=== PATIENT | female | born 1960 | race Caucasian/White ===

== ENCOUNTER 2016-11-15 21:00 | Emergency (ER) | payer OTHER ==
[~2016-11-15] VITALS: Ht 147.3 cm; Wt 42.2 kg
--- NOTE | ~2016-11-15 | EKG ---
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
[~2016-11-15 21:00] MED LIST: ABILIFY 2 MG2 MG PO; ACTIGALL300 MG PO; ALBUTEROL INHAL17 GM IH; ANTIVERT25 MG PO; BACLOFEN 10MG T10 MG PO; BENTYL 10 MG CA10 M1 PO; BYSTOLIC10 MG PO; CALCIUM OYSTER500 MG PO; CARAFATE 1 GM TA1 G1 PO; CARAFATE1 GM/10 ML PO; CARVEDILOL6.25 MG PO; CELEXA 10 MG TA10 M1 PO; CELEXA10 MG PO; CITRACAL + BON1 EACH PO; COMBIVENT INH; CYCLOBENZAPRINE10 MG PO; CYMBALTA PO; CYMBALTA20 MG PO; CYMBALTA30 MG PO; CYMBALTA60 MG PO; DEPAKOTE 250MG250 M1 PO; DIETHYLPROPION25 MG PO; DILTIAZEM ER120 M1 PO; DOXYCYCLINE 10100 MG PO; EMBEDA ER 60-21 EACH PO; ENDOCET 7.5-321 EACH PO; FENTANYL PA25 MCG/HR TP; FLEXERIL PO; FLOMAX PO; FLOMAX0.4 MG PO; FLONASE 0.05%50 MCG NASAL; FLOVENT DISKU100 MCG IH; FORTEO750 MCG/3 SUBQ; GUANFACINE HCL1 MG PO; HYDROXYZINE HCL25 M1 PO; IBUPROFEN 200200 M1 PO; IMITREX100 MG PO; IRON OR; IRON325 PO; LATUDA20 MG PO; LEVOTHYROXINE0.05 MG PO; LEVSIN0.125 MG PO; LIORESAL 10 MG10 MG PO; LOPRESSOR25 PO; LYRICA 50 MG50 MG PO; MEDROLDOSEPACK PO; METHADONE HCL 110 M1 PO; METHADOSE10 MG PO; MORPHINE; MORPHINE SULFAT15 M1 PO; MORPHINE SULFAT15 M3 PO; MS CONTIN15 MG PO; MULTIVITAMINS1 EAC7 PO; NEURONTIN 300300 M1 PO; NEURONTIN 300M300 M2 PO; NEURONTIN300 MG PO; NEURONTIN600 MG PO; NICOMIDE TABLE1 EAC1 PO; NORCO 5-325 TA1 EACH PO; OMEPRAZOLE 20 M20 MG PO; ONDANSETRON HCL4 M2 PO; OXYCODON-ACETA1 EAC1 PO; OXYCODONE HCL 55 MG PO; OXYCODONE HCL5 M1 PO; OXYCODONE-APAP1 EAC6 PO; PAMELOR OR; PERCOCET 10-321 EACH PO; PERCOCET 7.5-31 EACH PO; PREDNISONE 20 M20 MG PO; PREVACID 30MG C30 M1 PO; PROAIR HFA8.5 GM; PROAIR HFA8.5 GM IH; PROPRANOLOL 1010 M1 PO; PROTONIX40 M1 PO; PROTONIX40 M2 PO; REGLAN 10 MG TA10 M1 PO; REMERON15 MG PO; RESTORIL30 MG PO; TRAMADOL 50 MG50 MG PO; TREXIMET 85-501 EACH PO; VALIUM2 MG PO; VERAPAMIL HCL120 M1 PO; VERAPAMIL HCL120 MG PO; VITAMIN B122500 MCG PO; VITAMIN D400 UNI1 PO; VOLTAREN GEL 1100 G1; VOLTAREN GEL 1100 G1 TRANSDERM; VOLTAREN GEL 1100 G2 TOP; WELLBUTRIN 75 M75 M1 PO; ZOFRAN ODT4 MG PO; ZOFRAN4 MG PO
[2016-11-15 21:37] LABS: HEMATOCRIT 34.4 % (37.0-47.0); HEMOGLOBIN 11.8 gm/dL (12.0-15.0); MANUAL DIFF YES; MCHC 34.2 g/dL (28.0-37.0); MCV 93.5 fL (80.0-100.0); PLATELET COUNT 183 thou/uL (150-400); RBC 3.68 mil/uL (4.20-5.00); RDW 12.9 % (10.5-14.5); WBC 4.3 thou/uL (4.0-11.0)
[2016-11-15 21:45] LABS: ANION GAP 5 mmol/L (7-16); BUN 7 mg/dL (7-18); CHLORIDE 100 mmol/L (98-107); CO2 29 mmol/L (21-32); CREATININE 0.7 mg/dL (0.6-1.3); GLUCOSE 100 mg/dL (70-99); POTASSIUM 4.3 mmol/L (3.5-5.1); SODIUM 134 mmol/L (136-145)
[2016-11-15 21:56] LABS: ALBUMIN 3.6 g/dL (3.4-5.0); ALKALINE PHOSPHATASE 177 U/L (46-116); NT-PRO BRAIN NAT PEPTIDE 61 pg/mL (<300); SGOT 34 U/L (15-37); SGPT 25 U/L (30-65); TOTAL BILIRUBIN 0.3 mg/dL (<0.1-1.0); TOTAL PROTEIN 7.1 g/dL (6.4-8.2); TROPONIN-I < 0.04 ng/mL (<0.04-0.07)
[2016-11-15 22:14] LABS: ABSOLUTE NEUTROPHILS 2.2 thou/uL (1.4-8.2); ANISOCYTOSIS 1+; TOTAL CELL COUNT 100
[2016-11-15] MEDS ORDERED: AZITHROMYCIN 2250 MG PO (23:05)
[2016-11-15] MEDS ORDERED: PREDNISONE 20 M20 MG PO (23:05)
[2016-11-15 23:39] VITALS: BP 100/60
== END 2016-11-15 23:41 | disposition home or self-care (01) ==
LOC: ER 21:00
PROVIDERS: Emergency Medicine
DX: J18.9 Pneumonia, unspecified organism (principal); M47.898 Other spondylosis, sacral and sacrococcygeal region; M79.7 Fibromyalgia; F32.9 Major depressive disorder, single episode, unspecified; I10 Essential (primary) hypertension; G43.909 Migraine, unspecified, not intractable, without status migrainosus; J44.9 Chronic obstructive pulmonary disease, unspecified; G47.30 Sleep apnea, unspecified; Z86.73 Personal history of transient ischemic attack (TIA), and cerebral infarction without residual deficits; Z86.2 Personal history of diseases of the blood and blood-forming organs and certain disorders involving the immune mechanism; Z90.710 Acquired absence of both cervix and uterus; Z88.6 Allergy status to analgesic agent; Z88.5 Allergy status to narcotic agent; Z88.2 Allergy status to sulfonamides; Z88.8 Allergy status to other drugs, medicaments and biological substances; Z87.891 Personal history of nicotine dependence

== ENCOUNTER 2017-01-13 00:38 | Emergency (ER) | payer OTHER ==
[~2017-01-13] VITALS: Ht 162.6 cm; Wt 41.3 kg
--- NOTE | ~2017-01-13 | EKG ---
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 : 1960 Requested By: Zakiya Iglesias Order Number: [id number] MD: Reynold Cuevas Measurements Intervals [place] Rate: 73 P: 20 NM: 137 QRS: -3 QRSD: 79 T: 18 QT: 378 QTc: 417 Interpretive Statements Sinus rhythm No significant abnormality Compared to ECG 11/15/2016 21:09:34 Sinus tachycardia no longer present Electronically Signed On 01-13-2017 14:05:07 CDT by Reynold Cuevas [email or web address] <ELECTRONICALLY SIGNED> By: Reynold Cuevas MD, [facility] 01/13/17 1405 0110 0110 Reynold Cuevas MD, FACC /EPI
[~2017-01-13 00:38] MED LIST changes: +AZITHROMYCIN 2250 MG PO
[2017-01-13 01:00] LABS: ABSOLUTE NEUTROPHILS 2.6 thou/uL (1.4-8.2); BASOPHILS 0.8 % (0.0-2.0); HEMATOCRIT 34.2 % (37.0-47.0); HEMOGLOBIN 11.7 gm/dL (12.0-15.0); LYMPHOCYTES 40.9 % (24.0-44.0); MCH 31.6 pg (26.0-34.0); MCHC 34.2 g/dL (28.0-37.0); MCV 92.3 fL (80.0-100.0); MONOCYTES 8.6 % (1.0-8.0); PLATELET COUNT 263 thou/uL (150-400); POLYS 38.7 % (36.0-66.0); RBC 3.71 mil/uL (4.20-5.00); RDW 12.2 % (10.5-14.5); WBC 6.8 thou/uL (4.0-11.0)
[2017-01-13 01:08] LABS: MANUAL DIFF NO
[2017-01-13 01:11] LABS: ANION GAP 7 mmol/L (7-16); BUN 11 mg/dL (7-18); CHLORIDE 105 mmol/L (98-107); CO2 32 mmol/L (21-32); CREATININE 0.6 mg/dL (0.6-1.0); GLUCOSE 85 mg/dL (74-106); POTASSIUM 4.1 mmol/L (3.5-5.1); SODIUM 144 mmol/L (136-145)
[2017-01-13 01:18] LABS: ALBUMIN 3.4 g/dL (3.4-5.0); ALKALINE PHOSPHATASE 121 U/L (46-116); SGOT 22 U/L (15-37); SGPT 24 U/L (30-65); TOTAL BILIRUBIN 0.2 mg/dL (<0.1-1.0); TOTAL PROTEIN 6.7 g/dL (6.4-8.2); TROPONIN-I < 0.04 ng/mL (<0.04-0.07)
[2017-01-13 03:46] VITALS: BP 128/80
== END 2017-01-13 03:47 | disposition home or self-care (01) ==
LOC: ER 00:38
PROVIDERS: Nurse Practitioner Family
DX: R55 Syncope and collapse (principal); E03.9 Hypothyroidism, unspecified; G43.909 Migraine, unspecified, not intractable, without status migrainosus; M79.7 Fibromyalgia; F32.9 Major depressive disorder, single episode, unspecified; I10 Essential (primary) hypertension; J44.9 Chronic obstructive pulmonary disease, unspecified; G47.30 Sleep apnea, unspecified; D64.9 Anemia, unspecified; Z90.710 Acquired absence of both cervix and uterus; Z90.49 Acquired absence of other specified parts of digestive tract; Z87.442 Personal history of urinary calculi; Z86.73 Personal history of transient ischemic attack (TIA), and cerebral infarction without residual deficits; Z98.890 Other specified postprocedural states; Z88.8 Allergy status to other drugs, medicaments and biological substances; Z88.6 Allergy status to analgesic agent; Z88.5 Allergy status to narcotic agent; Z88.2 Allergy status to sulfonamides; Z87.891 Personal history of nicotine dependence

== ENCOUNTER → 2017-02-13 | Outpatient (CLI) | payer OTHER ==
[~2017-02-13] MED LIST changes: +HYDROXYZINE HCL50 MG PO
== END | disposition home or self-care (01) ==
LOC: LITH 06:06
DX: N20.1 Calculus of ureter (principal); J44.9 Chronic obstructive pulmonary disease, unspecified; G43.909 Migraine, unspecified, not intractable, without status migrainosus; M19.90 Unspecified osteoarthritis, unspecified site; E03.9 Hypothyroidism, unspecified; M79.7 Fibromyalgia; Z90.49 Acquired absence of other specified parts of digestive tract; Z98.890 Other specified postprocedural states; Z88.8 Allergy status to other drugs, medicaments and biological substances

== ENCOUNTER 2017-02-24 20:42 | Emergency (ER) | payer OTHER ==
[~2017-02-24] VITALS: Ht 147.3 cm; Wt 42.6 kg
--- NOTE | ~2017-02-24 | EKG ---
[address] [address] ELECTROCARDIOGRAM REPORT Name: LINO DIAS Room #: DEP Alana#: [id number] Admission: 02/24/17 Attend Phys: Discharge: 02/24/17 Date of : 58 Report #: [id number] THIS REPORT FOR: //name// [facility] ED Test Date: 2017-02-24 Test Time: 20:56:04 Pat Name: LINO DIAS Department: Room: Gender: F Diagnostic Assistant: FRANKIE : 1960 Requested By: Tia Anderson Order Number: [id number] MD: Jonathan Pandya Measurements Intervals [place] Rate: 110 P: -13 SC: 116 QRS: 6 QRSD: 77 T: 19 QT: 311 QTc: 421 Interpretive Statements Sinus tachycardia Compared to ECG 01/13/2017 01:10:56 Sinus rhythm no longer present Electronically Signed On 02-25-2017 17:04:55 CDT by Jonathan Pandya [email or web address] <ELECTRONICALLY SIGNED> By: Jonathan Pandya MD 02/25/17 1704 55 Jonathan Pandya MD /ILANA
[~2017-02-24 20:42] MED LIST changes: -HYDROXYZINE HCL50 MG PO
[2017-02-24] MEDS ORDERED: OXYCODONE HCL 55 MG PO (20:55)
[2017-02-24] MEDS ORDERED: HYDROXYZINE HCL50 MG PO (20:55)
[2017-02-24 20:58] LABS: ABSOLUTE NEUTROPHILS 7.5 thou/uL (1.4-8.2); BASOPHILS 0.4 % (0.0-2.0); EOSINOPHILS 3.9 % (0.0-3.0); HEMATOCRIT 32.4 % (37.0-47.0); HEMOGLOBIN 11.3 gm/dL (12.0-15.0); LYMPHOCYTES 16.2 % (24.0-44.0); MANUAL DIFF NO; MCH 31.7 pg (26.0-34.0); MCHC 34.8 g/dL (28.0-37.0); MCV 91.3 fL (80.0-100.0); PLATELET COUNT 240 thou/uL (150-400); POLYS 70.5 % (36.0-66.0); RBC 3.55 mil/uL (4.20-5.00); RDW 12.5 % (10.5-14.5); WBC 10.7 thou/uL (4.0-11.0)
[2017-02-24 21:09] LABS: ANION GAP 5 mmol/L (7-16); BUN 18 mg/dL (7-18); CALCIUM 9.1 mg/dL (8.5-10.1); CHLORIDE 102 mmol/L (98-107); CO2 31 mmol/L (21-32); CREATININE 0.7 mg/dL (0.6-1.0); GLUCOSE 91 mg/dL (74-106); POTASSIUM 3.8 mmol/L (3.5-5.1); SODIUM 138 mmol/L (136-145)
[2017-02-24 21:18] LABS: TROPONIN-I < 0.04 ng/mL (<0.04-0.07)
[2017-02-24 21:37] LABS: URINE BILIRUBIN NEGATIVE (Negative); URINE BLOOD NEGATIVE (Negative); URINE COLOR YELLOW; URINE GLUCOSE-RANDOM* NEGATIVE (Negative); URINE KETONES NEGATIVE (Negative); URINE NITRITE NEGATIVE (Negative); URINE PROTEIN (DIPSTICK) NEGATIVE (Negative); URINE UROBILINOGEN 0.2 E.U./dl (0.2-1.0)
[2017-02-24 23:48] VITALS: BP 116/68
== END 2017-02-24 23:11 | disposition home or self-care (01) ==
LOC: ER 20:42
PROVIDERS: Emergency Medicine
DX: R07.9 Chest pain, unspecified (principal); R09.1 Pleurisy; M79.7 Fibromyalgia; F32.9 Major depressive disorder, single episode, unspecified; I10 Essential (primary) hypertension; G43.909 Migraine, unspecified, not intractable, without status migrainosus; J44.9 Chronic obstructive pulmonary disease, unspecified; G47.30 Sleep apnea, unspecified; Z86.2 Personal history of diseases of the blood and blood-forming organs and certain disorders involving the immune mechanism; Z90.710 Acquired absence of both cervix and uterus; Z90.49 Acquired absence of other specified parts of digestive tract; Z87.442 Personal history of urinary calculi; Z86.73 Personal history of transient ischemic attack (TIA), and cerebral infarction without residual deficits; Z98.890 Other specified postprocedural states; Z88.8 Allergy status to other drugs, medicaments and biological substances; Z88.5 Allergy status to narcotic agent; Z88.2 Allergy status to sulfonamides; Z87.891 Personal history of nicotine dependence

== ENCOUNTER → 2017-03-06 | Outpatient (CLI) | payer OTHER ==
[~2017-03-06] MED LIST changes: +HYDROXYZINE HCL50 MG PO
== END ==
LOC: RAD 12:05
DX: N20.0 Calculus of kidney (principal)

== ENCOUNTER → 2017-12-27 | Outpatient (CLI) | payer OTHER | LOC: RAD 09:12 | DX: M47.894 Other spondylosis, thoracic region (principal); M47.896 Other spondylosis, lumbar region; M47.892 Other spondylosis, cervical region ==

== ENCOUNTER → 2018-05-28 | Outpatient (CLI) | payer OTHER ==
[~2018-05-28] MED LIST changes: +EFFEXOR XR75 MG PO; +SYNTHROID25 MC1 PO
== END ==
LOC: MRI 08:20
DX: M47.22 Other spondylosis with radiculopathy, cervical region (principal); M54.6 Pain in thoracic spine; M25.78 Osteophyte, vertebrae; M48.02 Spinal stenosis, cervical region; G43.909 Migraine, unspecified, not intractable, without status migrainosus; J44.9 Chronic obstructive pulmonary disease, unspecified; I10 Essential (primary) hypertension

== ENCOUNTER → 2018-05-29 | Outpatient (CLI) | payer OTHER | LOC: MRI 11:49 | DX: M47.26 Other spondylosis with radiculopathy, lumbar region (principal); M43.16 Spondylolisthesis, lumbar region; M25.78 Osteophyte, vertebrae ==

== ENCOUNTER 2018-08-13 11:06 | Emergency (ER) | payer OTHER ==
[~2018-08-13] VITALS: Ht 147.3 cm; Wt 45.4 kg
[2018-08-13 13:05] LABS: HEMATOCRIT 31.4 % (37.0-47.0); HEMOGLOBIN 10.5 gm/dL (12.0-15.0); MCH 31.7 pg (26.0-34.0); MCHC 33.4 g/dL (28.0-37.0); MCV 94.8 fL (80.0-100.0); PLATELET COUNT 210 thou/uL (150-400); RBC 3.31 mil/uL (4.20-5.00); RDW 12.8 % (10.5-14.5); WBC 4.5 thou/uL (4.0-11.0)
[2018-08-13 13:15] LABS: ANION GAP 3 mmol/L (7-16); BUN 9 mg/dL (7-18); CALCIUM 8.7 mg/dL (8.5-10.1); CHLORIDE 102 mmol/L (98-107); CO2 32 mmol/L (21-32); CREATININE 0.6 mg/dL (0.6-1.0); GLUCOSE 81 mg/dL (74-106); POTASSIUM 4.5 mmol/L (3.5-5.1); SODIUM 137 mmol/L (136-145)
[2018-08-13 13:20] LABS: ALBUMIN 3.2 g/dL (3.4-5.0); DIRECT BILIRUBIN < 0.1 mg/dL (<0.1-0.3); LIPASE 281 U/L (73-393); SGOT 22 U/L (15-37); SGPT 18 U/L (30-65); TOTAL BILIRUBIN 0.2 mg/dL (<0.1-1.0); TOTAL PROTEIN 6.6 g/dL (6.4-8.2)
[2018-08-13 14:16] LABS: ABSOLUTE NEUTROPHILS 1.9 thou/uL (1.4-8.2); ANISOCYTOSIS 1+
[2018-08-13 14:17] LABS: POLYCHROMASIA OCCASIONAL
[2018-08-13] MEDS ORDERED: FLEXERIL PO (16:03)
[2018-08-13] MEDS ORDERED: CARAFATE 1 GM TA1 G1 PO (16:03)
[2018-08-13] MEDS ORDERED: BENTYL 20 MG TA20 M1 PO (16:03)
[2018-08-13 16:17] VITALS: BP 99/55
== END 2018-08-13 16:21 | disposition home or self-care (01) ==
LOC: ER 11:06
PROVIDERS: Emergency Medicine
DX: K27.9 Peptic ulcer, site unspecified, unspecified as acute or chronic, without hemorrhage or perforation (principal); M53.3 Sacrococcygeal disorders, not elsewhere classified; M79.7 Fibromyalgia; F32.9 Major depressive disorder, single episode, unspecified; I10 Essential (primary) hypertension; G43.909 Migraine, unspecified, not intractable, without status migrainosus; J44.9 Chronic obstructive pulmonary disease, unspecified; Z90.49 Acquired absence of other specified parts of digestive tract; Z90.710 Acquired absence of both cervix and uterus; G47.30 Sleep apnea, unspecified; Z87.891 Personal history of nicotine dependence; Z88.2 Allergy status to sulfonamides; Z88.5 Allergy status to narcotic agent; Z88.6 Allergy status to analgesic agent; Z88.8 Allergy status to other drugs, medicaments and biological substances

== ENCOUNTER 2018-08-19 11:49 | Emergency (ER) | payer OTHER ==
[~2018-08-19] VITALS: Ht 147.3 cm; Wt 44.0 kg
--- NOTE | ~2018-08-19 | EKG ---
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
[~2018-08-19 11:49] MED LIST changes: +BENTYL 20 MG TA20 M1 PO
[2018-08-19 12:24] LABS: HEMOGLOBIN 10.8 gm/dL (12.0-15.0); MCH 31.9 pg (26.0-34.0); MCHC 33.7 g/dL (28.0-37.0); MCV 94.5 fL (80.0-100.0); PLATELET COUNT 269 thou/uL (150-400); RBC 3.38 mil/uL (4.20-5.00); RDW 12.6 % (10.5-14.5); WBC 4.9 thou/uL (4.0-11.0)
[2018-08-19 12:29] LABS: ANION GAP 7 mmol/L (7-16); BUN 9 mg/dL (7-18); CALCIUM 9.2 mg/dL (8.5-10.1); CHLORIDE 101 mmol/L (98-107); CO2 32 mmol/L (21-32); CREATININE 0.6 mg/dL (0.6-1.0); GLUCOSE 85 mg/dL (74-106); POTASSIUM 3.7 mmol/L (3.5-5.1); SODIUM 140 mmol/L (136-145)
[2018-08-19 12:35] LABS: APTT 30.4 Seconds (24.5-32.8); PROTIME 9.9 Seconds (9.3-11.4)
[2018-08-19 12:38] LABS: ALBUMIN 3.3 g/dL (3.4-5.0); MAGNESIUM 1.9 mg/dL (1.8-2.4); SGOT 25 U/L (15-37); SGPT 18 U/L (30-65); TOTAL BILIRUBIN 0.4 mg/dL (<0.1-1.0); TOTAL PROTEIN 7.4 g/dL (6.4-8.2); TROPONIN-I <0.06 ng/mL (<0.06)
[2018-08-19 12:50] LABS: ABSOLUTE NEUTROPHILS 2.5 thou/uL (1.4-8.2); PLATELET ESTIMATE NORMAL
[2018-08-19 12:59] LABS: URINE BILIRUBIN NEGATIVE (Negative); URINE BLOOD NEGATIVE (Negative); URINE CLARITY CLEAR; URINE COLOR YELLOW; URINE GLUCOSE-RANDOM* NEGATIVE (Negative); URINE KETONES NEGATIVE (Negative); URINE LEUKOCYTES-REFLEX NEGATIVE (Negative); URINE NITRITE-REFLEX NEGATIVE (Negative); URINE PROTEIN (DIPSTICK) NEGATIVE (Negative); URINE SPECIFIC GRAVITY <= 1.005 (1.005-1.035); URINE UROBILINOGEN 0.2 E.U./dl (0.2-1.0)
[2018-08-19 13:07] LABS: AMP/METHAMP Negative (Negative); BARBITURATES Negative (Negative); BENZODIAZEPINES Negative (Negative); COCAINE Negative (Negative); METHADONE POSITIVE (Negative); OPIATES POSITIVE (Negative); PCP Negative (Negative)
[2018-08-19] MEDS ORDERED: PREDNISONE 20 M20 MG PO (15:34)
[2018-08-19 16:14] VITALS: BP 124/76
== END 2018-08-19 16:15 | disposition home or self-care (01) ==
LOC: ER 11:49
PROVIDERS: Emergency Medicine
DX: M54.42 Lumbago with sciatica, left side (principal); T40.3X5A Adverse effect of methadone, initial encounter; G89.4 Chronic pain syndrome; D64.9 Anemia, unspecified; R41.82 Altered mental status, unspecified; F11.90 Opioid use, unspecified, uncomplicated; M79.7 Fibromyalgia; F32.9 Major depressive disorder, single episode, unspecified; I10 Essential (primary) hypertension; G43.909 Migraine, unspecified, not intractable, without status migrainosus; J44.9 Chronic obstructive pulmonary disease, unspecified; G47.30 Sleep apnea, unspecified; Z86.73 Personal history of transient ischemic attack (TIA), and cerebral infarction without residual deficits; Z87.891 Personal history of nicotine dependence; Z88.8 Allergy status to other drugs, medicaments and biological substances; Z88.6 Allergy status to analgesic agent; Z87.442 Personal history of urinary calculi; Z88.5 Allergy status to narcotic agent; Z90.49 Acquired absence of other specified parts of digestive tract; Z88.2 Allergy status to sulfonamides; Z90.710 Acquired absence of both cervix and uterus; Z90.10 Acquired absence of unspecified breast and nipple; Y92.89 Other specified places as the place of occurrence of the external cause

== ENCOUNTER → 2018-08-25 | Outpatient (CLI) | payer OTHER | LOC: MRI 13:52 | DX: M51.16 Intervertebral disc disorders with radiculopathy, lumbar region (principal); M48.061 Spinal stenosis, lumbar region without neurogenic claudication ==

== ENCOUNTER → 2018-11-04 | Outpatient (CLI) | payer OTHER | LOC: RAD 13:49 | DX: M48.02 Spinal stenosis, cervical region (principal); Z98.1 Arthrodesis status ==

== ENCOUNTER 2019-03-27 12:42 | Emergency (ER) | payer OTHER ==
[~2019-03-27] VITALS: Ht 147.3 cm; Wt 49.0 kg
[2019-03-27 13:53] LABS: HEMATOCRIT 33.6 % (37.0-47.0); HEMOGLOBIN 11.4 gm/dL (12.0-15.0); MCH 30.3 pg (26.0-34.0); MCV 89.2 fL (80.0-100.0); PLATELET COUNT 308 thou/uL (150-400); RBC 3.76 mil/uL (4.20-5.00); RDW 14.9 % (10.5-14.5); WBC 6.1 thou/uL (4.0-11.0)
[2019-03-27 14:08] LABS: CALCIUM 9.3 mg/dL (8.5-10.1); CREATININE 0.7 mg/dL (0.6-1.0); POTASSIUM 3.8 mmol/L (3.5-5.1)
[2019-03-27 14:11] LABS: ABSOLUTE NEUTROPHILS 3.4 thou/uL (1.4-8.2); ATYPICAL LYMPHS 2 %
[2019-03-27 14:12] LABS: PLATELET ESTIMATE NORMAL
[2019-03-27 14:13] LABS: ANISOCYTOSIS SLIGHT
[2019-03-27 16:45] VITALS: BP 132/76
== END 2019-03-27 16:45 | disposition home or self-care (01) ==
LOC: ER 12:42
PROVIDERS: Emergency Medicine
DX: K14.8 Other diseases of tongue (principal); G43.909 Migraine, unspecified, not intractable, without status migrainosus; I10 Essential (primary) hypertension; M51.36 Other intervertebral disc degeneration, lumbar region; G47.30 Sleep apnea, unspecified; M79.7 Fibromyalgia; F32.9 Major depressive disorder, single episode, unspecified; M50.30 Other cervical disc degeneration, unspecified cervical region; K31.84 Gastroparesis; J44.9 Chronic obstructive pulmonary disease, unspecified; Z87.442 Personal history of urinary calculi; Z86.73 Personal history of transient ischemic attack (TIA), and cerebral infarction without residual deficits; Z98.84 Bariatric surgery status; Z90.49 Acquired absence of other specified parts of digestive tract; Z90.710 Acquired absence of both cervix and uterus; Z86.2 Personal history of diseases of the blood and blood-forming organs and certain disorders involving the immune mechanism; Z90.3 Acquired absence of stomach [part of]; Z98.890 Other specified postprocedural states; Z88.0 Allergy status to penicillin; Z87.891 Personal history of nicotine dependence; Z88.6 Allergy status to analgesic agent; Z88.5 Allergy status to narcotic agent; Z88.1 Allergy status to other antibiotic agents; Z88.8 Allergy status to other drugs, medicaments and biological substances

== ENCOUNTER → 2019-04-22 | Outpatient (CLI) | payer OTHER ==
[2019-04-22 09:09] LABS: HEMATOCRIT 34.5 % (37.0-47.0); HEMOGLOBIN 11.4 gm/dL (12.0-15.0); MCH 29.2 pg (26.0-34.0); MCHC 32.9 g/dL (28.0-37.0); MCV 88.7 fL (80.0-100.0); RBC 3.89 mil/uL (4.20-5.00); RDW 16.1 % (10.5-14.5); WBC 3.6 thou/uL (4.0-11.0)
== END ==
LOC: MRI 08:37 → LABMALL 08:37 → MRI 15:21
PROVIDERS: Nurse Practitioner Family
DX: R90.82 White matter disease, unspecified (principal); G89.4 Chronic pain syndrome; Z86.59 Personal history of other mental and behavioral disorders; Z88.8 Allergy status to other drugs, medicaments and biological substances; Z88.0 Allergy status to penicillin; Z88.2 Allergy status to sulfonamides

== ENCOUNTER → 2019-05-01 | Outpatient (CLI) | payer OTHER ==
[2019-05-01 09:03] LABS: CHOLESTEROL 212 mg/dL (<200); HDL CHOLESTEROL 85 mg/dL (>40); LDL CHOLESTEROL 117 mg/dL (<100); TC:HDL 2.5 Ratio (Not establshd); TRIGLYCERIDE 53 mg/dL (<150); VLDL 11 mg/dL (<40)
[2019-05-01 09:04] LABS: SERUM ASSESSMENT Clear
--- NOTE | 2019-05-01 09:22 | 2DMMODE ---
[facility] [place] [address] 2 D/M-MODE ECHOCARDIOGRAM Name: LINO DIAS Room #: REG [facility]#: [id number] ������������� Admission: 05/01/19 ������������� Attend Phys: Saeed Machado, Discharge: ��� ������������� ��� Date of : 58 Date of Service: 05/01/19 0922 �� Report #: [id number] �������� ��������������������������������������������[id number] THIS REPORT FOR: //name// APPROVED REPORT Study performed: 05/01/2019 08:23:58 EXAM: Comprehensive 2D, Doppler, and color-flow Echocardiogram Patient Location: Out-Patient Status: routine BSA: 1.41 HR: 84 bpm BP: 134/74 mmHg Rhythm: NSR Other Information Study Quality: Excellent Indications Possible stroke. Tremors. Headaches. Echo Enhancing Agent Indication: Rule out Shunt Agent(s) / Amount(s) Used: Agitated Saline 6 cc 2D Dimensions RVDd: 24.58 mm IVSd: 10.45 (7-11mm) LVOT Diam: 18.90 (18-24mm) LVDd: 37.10 mm PWd: 7.77 (7-11mm) Ascending Ao: 28.03 (22-36mm) LVDs: 27.67 (25-40mm) Aortic Root: 31.83 mm Volumes Left Atrial Volume (Systole) Single Plane 4CH: 26.13 mL Single Plane 2CH: 31.96 mL LA ESV Index: 23.00 mL/m2 Aortic Valve AoV Peak Dilan.: 1.19 m/s AO Peak Gr.: 5.65 mmHg LVOT Max P.16 mmHg LVOT Max V: 0.89 m/s BELEN Vmax: 2.10 cm2 [facility] [address] [address] 2 D/M-MODE ECHOCARDIOGRAM Name: LINO DIAS Room #: REG [facility]#: [id number] ������������� Admission: 05/01/19 ������������� Attend Phys: Saeed Machado, Discharge: ��� ������������� ��� Date of : 58 Date of Service: 05/01/19 0922 �� Report #: [id number] �������� ��������������������������������������������[id number] Mitral Valve E/A Ratio: 0.8 MV Decel. Time: 283.45 ms MV E Max Dilan.: 0.57 m/s MV A Idlan.: 0.70 m/s MV PHT: 82.20 ms IVRT: 89.97 ms Pulmonary Valve PV Peak Dilan.: 0.72 m/s PV Peak Gr.: 2.09 mmHg Pulmonary Vein P Vein S: 0.56 m/s P Vein D: 0.42 m/s P Vein S/D Ratio: 1.33 Tricuspid Valve TR Peak Dilan.: 2.12 m/s RAP Estimate: 5.00 mmHg TR Peak Gr.: 18.04 mmHg PA Pressure: 23.00 mmHg Left Ventricle The left ventricle is normal size. There is normal LV segmental wall motion. There is normal left ventricular wall thickness. Left ventricular systolic function is normal. LVEF is 55%. Mild diastolic dysfunction Right Ventricle The right ventricle is normal size. The right ventricular systolic function is normal. Atria No shunting noted with contrast bubble injection. The right atrium size is normal. Aortic Valve The aortic valve is mildly sclerotic Trace aortic regurgitation There is no aortic valvular stenosis. Mitral Valve The mitral valve is normal in structure. Trace mitral regurgitation. Tricuspid Valve The tricuspid valve is normal in structure. Trace tricuspid regurgitation. Estimated PAP is 25 mmHg. [facility] [address] [place] [address] 2 D/M-MODE ECHOCARDIOGRAM Name: LINO DIAS Room #: REG [facility]#: [id number] ������������� Admission: 05/01/19 ������������� Attend Phys: Saeed Machado, Discharge: ��� ������������� ��� Date of : 58 Date of Service: 05/01/19 0922 �� Report #: [id number] �������� ��������������������������������������������[id number] Pulmonic Valve The pulmonary valve is normal in structure. Trace pulmonic regurgitation. Great Vessels The aortic root is normal in size. The ascending aorta is normal in size. IVC is normal in size and collapses >50% with inspiration. Pericardium There is no pericardial effusion. <Conclusion> Left ventricular systolic function is normal. There is normal LV segmental wall motion. LVEF is 55%. Mild diastolic dysfunction No shunting noted with contrast bubble injection. The aortic valve is mildly sclerotic. Trace aortic regurgitation, no stenosis The mitral valve is normal in structure. Trace mitral regurgitation. Trace tricuspid regurgitation. Estimated pulmonary artery pressure of 25 mmHg. There is no pericardial effusion. ��������������������������������������������� <ELECTRONICALLY SIGNED> ���������������������������������������� By: Reynold Cuevas MD, [facility] ��������������������������������������������� 05/01/19921 1 1 Reynold Cuevas MD, FACC /INF
== END ==
LOC: LABMALL 07:14
PROVIDERS: Psychiatry & Neurology Neuromuscular Medicine
DX: I35.8 Other nonrheumatic aortic valve disorders (principal); G89.4 Chronic pain syndrome; R25.1 Tremor, unspecified; Z86.73 Personal history of transient ischemic attack (TIA), and cerebral infarction without residual deficits

== ENCOUNTER 2020-02-24 10:48 | Emergency (ER) | payer OTHER ==
[~2020-02-24] VITALS: Ht 147.3 cm; Wt 45.8 kg
[2020-02-24 11:29] LABS: HEMATOCRIT 33.4 % (37.0-47.0); HEMOGLOBIN 11.2 gm/dL (12.0-15.0); MCH 31.1 pg (26.0-34.0); MCHC 33.4 g/dL (28.0-37.0); MCV 92.9 fL (80.0-100.0); PLATELET COUNT 187 thou/uL (150-400); RBC 3.59 mil/uL (4.20-5.00); RDW 15.4 % (10.5-14.5)
[2020-02-24 11:45] LABS: ALBUMIN 3.1 g/dL (3.4-5.0); ANION GAP 9 mmol/L (7-16); BUN 11 mg/dL (7-18); CHLORIDE 93 mmol/L (98-107); CO2 29 mmol/L (21-32); CREATININE 0.7 mg/dL (0.6-1.0); DIRECT BILIRUBIN < 0.1 mg/dL (<0.1-0.2); GLUCOSE 91 mg/dL (74-106); POTASSIUM 3.8 mmol/L (3.5-5.1); SGOT 32 U/L (15-37); SGPT 24 U/L (30-65); SODIUM 131 mmol/L (136-145); TOTAL BILIRUBIN 0.2 mg/dL (0.2-1.0); TOTAL PROTEIN 6.7 g/dL (6.4-8.2)
[2020-02-24 11:56] LABS: CALCIUM 8.2 mg/dL (8.5-10.1)
[2020-02-24] MEDS ORDERED: DEPAKOTE500 MG PO (12:10)
[2020-02-24] MEDS ORDERED: BUSPIRONE HCL5 MG PO (12:10)
[2020-02-24] MEDS ORDERED: PROTONIX 20 MG20 MG PO (12:11)
[2020-02-24 12:33] LABS: URINE BILIRUBIN NEGATIVE (Negative); URINE BLOOD NEGATIVE (Negative); URINE CLARITY CLEAR; URINE COLOR YELLOW; URINE GLUCOSE-RANDOM* NEGATIVE (Negative); URINE KETONES NEGATIVE (Negative); URINE LEUKOCYTES-REFLEX NEGATIVE (Negative); URINE NITRITE-REFLEX NEGATIVE (Negative); URINE PROTEIN (DIPSTICK) NEGATIVE (Negative); URINE UROBILINOGEN 0.2 E.U./dl (0.2-1.0)
[2020-02-24 12:37] LABS: PLATELET ESTIMATE NORMAL
[2020-02-24 13:34] VITALS: BP 113/74
== END 2020-02-24 13:34 | disposition home or self-care (01) ==
LOC: ER 10:48
PROVIDERS: Emergency Medicine
DX: R50.9 Fever, unspecified (principal); R06.02 Shortness of breath; I10 Essential (primary) hypertension; J44.9 Chronic obstructive pulmonary disease, unspecified; G43.909 Migraine, unspecified, not intractable, without status migrainosus; Z20.828 Contact with and (suspected) exposure to other viral communicable diseases; Z86.73 Personal history of transient ischemic attack (TIA), and cerebral infarction without residual deficits; Z90.710 Acquired absence of both cervix and uterus; Z86.2 Personal history of diseases of the blood and blood-forming organs and certain disorders involving the immune mechanism; Z79.899 Other long term (current) drug therapy; Z79.2 Long term (current) use of antibiotics; Z87.891 Personal history of nicotine dependence; Z88.2 Allergy status to sulfonamides; Z88.6 Allergy status to analgesic agent; Z88.8 Allergy status to other drugs, medicaments and biological substances